=== PATIENT | male | born 1950 | race Caucasian/White ===

== ENCOUNTER 2018-01-02 10:50 | Day surgery (SDC) | payer OTHER ==
[2018-01-02] MEDS ORDERED: IODIXANOL LOCM 100 ML BTL (11:24)
[2018-01-02] MEDS ORDERED: LIDOCAINE 1% (MDV) 20 ML INJ (11:24)
[2018-01-02] MEDS ORDERED: MIDAZOLAM 1 MG/ML 2 ML INJ (11:25)
[2018-01-02] MEDS ORDERED: FENTAnyl 50 MCG/ML VIAL (11:25)
[2018-01-02] MEDS: SOD CHLORIDE 0.9% 1,000 ML IV (12:03)
[2018-01-02] MEDS: PANTOPRAZOLE (EC) 40 MG TAB PO (13:03)
[2018-01-02] MEDS: ASPIRIN 81 MG TAB PO (14:51)
[2018-01-02] MEDS: LISINOPRIL 20 MG TAB PO (14:51)
[2018-01-02] MEDS: METOPROLOL 25 MG TAB PO (14:52)
[2018-01-02] MEDS: ACETAMINOPHEN 325 MG TAB PO (15:17)
[2018-01-02] MEDS ORDERED: ATORVASTATIN 20 MG TAB PO (21:00)
== END 2018-01-02 18:20 | disposition short-term general hospital (02) ==
LOC: CCL 10:50
DX: I25.10 Atherosclerotic heart disease of native coronary artery without angina pectoris (principal); E11.9 Type 2 diabetes mellitus without complications; I10 Essential (primary) hypertension
CPT/HCPCS: 82962; 93458